=== PATIENT | female | born 1985 | race Caucasian/White ===

== ENCOUNTER 2018-10-27 12:34 | Emergency (ER) | payer OTHER ==
[~2018-10-27] VITALS: Ht 167.6 cm; Wt 90.7 kg
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
[2018-10-27] MEDS ORDERED: Methocarbamol 500mg tab ORAL ONE (13:00)
[2018-10-27] MEDS ORDERED: ROBAXIN500 MG PO (13:02)
[2018-10-27] MEDS ORDERED: IBUPROFEN600 MG ORAL (13:02)
[2018-10-27] MEDS ORDERED: LIDOCAINE700 M1 TP (13:02)
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
--- NOTE | 2018-10-27 13:21 | NUR ---
ED Nurse Note: unable to scan meds. used 2 scanners still not scanning
--- NOTE | 2018-10-27 13:27 | NUR ---
ED Nurse Note: pt. aaox4. ambulatory. left with steady gait. pt education done regarding d/c papers and prescriptions. vss. id armband removed
[2018-10-27 15:20] VITALS: BP 124/76
== END 2018-10-27 13:25 | disposition home or self-care (01) ==
LOC: EMR 13:21
DX: M54.6 Pain in thoracic spine (principal); V43.52XA Car driver injured in collision with other type car in traffic accident, initial encounter; Y92.488 Other paved roadways as the place of occurrence of the external cause
CPT/HCPCS: 99283